=== PATIENT | female | born 1930 | race Caucasian/White ===

== ENCOUNTER → 2016-09-16 | Outpatient (CLI) | payer MEDICARE ==
--- NOTE | 2016-09-17 08:26 | MR ---
EXAMINATION TYPE: MR tmj wo con DATE OF EXAM: 09/16/2016 12:53 PM COMPARISON: NONE HISTORY: Left dislocation tmj Standard multiplanar, multisequence MRI departmental protocol Multiplanar, multisequence images of the temporomandibular joints were acquired. Step bowen opening wa s performed. FINDINGS: The temporomandibular joint has normal orientation in the closed mouth position. Stepwise opening magalys luation demonstrates normal subluxation of the mandible in relation to the temporal bone. There appea rs to be normal capture of the meniscus. No dislocation of the meniscus is identified. The left and r ight sides appear symmetrical. IMPRESSION: Normal temporomandibular joint evaluation.
== END | disposition home or self-care (01) ==
LOC: RADMRIMAIN 11:26
PROVIDERS: ATTEND Otolaryngology Otolaryngology/Facial Plastic Surgery
DX: S03.02XA Dislocation of jaw, left side, initial encounter (principal)
CPT/HCPCS: 70336